=== PATIENT | female | born 1945 | race Caucasian/White ===

== ENCOUNTER 2018-06-06 10:36 | Day surgery (SDC) | payer OTHER ==
[~2018-06-06 10:36] MED LIST: ALPHAGAN P5 M2 OP; CLARISPRAY9.9 ML; CLONAZEPAM2 M1 PO; COZAAR50 MG PO; FLUOXETINE HCL20 MG PO; METOPROLOL SUCC25 MG PO; OMEPRAZOLE20 MG PO; PATADAY2.5 ML OP; RALOXIFENE PO; RESTORA CAPSUL1 EACH PO; TESSALON PERLE100 M1 PO; ULTRACET PO; ZOCOR20 MG PO
== END 2018-06-06 14:15 | disposition home or self-care (01) ==
LOC: AMB-ENDOS 10:36
DX: K64.8 Other hemorrhoids (principal)

== ENCOUNTER 2020-09-23 06:00 | Day surgery (SDC) | payer OTHER | END 2020-09-23 10:00 | disposition home or self-care (01) | LOC: AMB-ENDOS 06:00 | PROVIDERS: ATTEND Surgery | DX: K62.89 Other specified diseases of anus and rectum (principal); K64.8 Other hemorrhoids; Z20.822 Contact with and (suspected) exposure to COVID-19 ==